=== PATIENT | female | born 1965 | race Caucasian/White ===

== ENCOUNTER → 2023-05-08 | Outpatient (CLI) | payer OTHER ==
[~2023-05-08] MED LIST: IOHEXOL 350 MG/ML 100ML INFUS..BTL IV ONE; NO HOME MEDS
== END | disposition home or self-care (01) ==
LOC: RAH 09:30
PROVIDERS: ATTEND Internal Medicine Gastroenterology
DX: K57.30 Diverticulosis of large intestine without perforation or abscess without bleeding (principal); R14.0 Abdominal distension (gaseous)
CPT/HCPCS: 74178; Q9967